=== PATIENT | female | born 1985 | race Caucasian/White ===

== ENCOUNTER 2019-01-11 10:08 | Emergency (ER) | payer MEDICAID ==
[~2019-01-11] VITALS: Ht 162.6 cm; Wt 79.4 kg
[2019-01-11 10:14] VITALS: BP 105/76; Ht 162.6 cm; Wt 79.4 kg
== END 2019-01-11 11:39 | disposition home or self-care (01) ==
LOC: ED 10:08
DX: S61.311A Laceration without foreign body of left index finger with damage to nail, initial encounter (principal); W25.XXXA Contact with sharp glass, initial encounter; Y93.G1 Activity, food preparation and clean up; Y92.89 Other specified places as the place of occurrence of the external cause; Y99.8 Other external cause status
CPT/HCPCS: 90715; J2001